=== PATIENT | male | born 1960 | race Caucasian/White ===

== ENCOUNTER 2017-02-18 04:08 | Emergency (ER) | payer SELFPAY ==
[~2017-02-18] VITALS: Ht 177.8 cm; Wt 95.8 kg
[2017-02-18] MEDS ORDERED: OMEP20TA62 PO (04:47)
[2017-02-18] MEDS ORDERED: MAALOX/HYOSCYAMINE/LIDOCAINE 45 ML BTL PO ONE (05:00)
[2017-02-18 05:21] LABS: HEMATOCRIT 46.9 % (39.2-51.8); HEMOGLOBIN 16.1 g/dL (13.7-18.0); WHITE BLOOD COUNT 12.5 x10^3/uL (3.4-10)
[2017-02-18 05:23] LABS: ASPARTATE AMINO TRANSFERASE 13 U/L (15-37); BLOOD UREA NITROGEN 17 mg/dL (7-18)
[2017-02-18] MEDS ORDERED: MAALOX/HYOSCYAMINE/LIDOCAINE 45 ML BTL ONE (05:25)
[2017-02-18 05:30] LABS: IS PT STATUS REG ER OR PRE ER? YES
[2017-02-18 06:59] VITALS: BP 132/84
== END 2017-02-18 07:01 | disposition home or self-care (01) ==
LOC: ED 05:52
DX: R10.13 Epigastric pain (principal); R11.0 Nausea; K21.9 Gastro-esophageal reflux disease without esophagitis; Z88.8 Allergy status to other drugs, medicaments and biological substances
CPT/HCPCS: 36415; 74022; 80053; 83690; 84484; 85025; 86677; 93005; 99285

== ENCOUNTER 2018-06-16 21:25 | Observation (INO) | payer BC ==
[~2018-06-16] VITALS: Ht 185.4 cm; Wt 105.0 kg
[~2018-06-16 21:25] MED LIST: OMEP20TA62 PO
[2018-06-16] MEDS ORDERED: FAMOTIDINE 20 MG/2 ML ONE (21:41)
[2018-06-16] MEDS ORDERED: DIPHENHYDRAMINE 50 MG/ML, 1ML ONE (21:41)
[2018-06-16] MEDS ORDERED: EPINEPHRINE 1 MG/ML, 1ML ONE (21:41)
[2018-06-16] MEDS ORDERED: methylPREDNISolone SOD SUCC 125 MG/2 ML ONE (21:41)
[2018-06-16 21:56] LABS: BASOPHILS # (AUTO) 0.08 x10^3/uL (0-0.1); BASOPHILS % (AUTO) 1 % (0-1); EOSINOPHILS # (AUTO) 0.51 x10^3/uL (0-0.4); EOSINOPHILS % (AUTO) 5 % (1-7); LYMPHOCYTES # (AUTO) 2.84 x10^3/uL (1-3.4); LYMPHOCYTES % (AUTO) 29 % (22-44); MD NO; MEAN CORPUSCULAR HEMOGLOBIN 33.1 pg (27.5-34.5); MEAN CORPUSCULAR HGB CONC 34.1 g/dL (33.2-36.2); MEAN PLATELET VOLUME 7.9 fL (7.4-10.4); MONOCYTES # (AUTO) 1.11 x10^3/uL (0.2-0.8); MONOCYTES % (AUTO) 11 % (2-9); NEUTROPHILS % (AUTO) 53 % (42-75); PLATELET COUNT 300 x10^3/uL (130-400); RED BLOOD COUNT 4.69 x10^6/uL (4.38-5.82); RED CELL DISTRIBUTION WIDTH 12.9 % (9.4-14.8)
--- NOTE | 2018-06-16 21:56 | NUR ---
PT PRESENTING TO ER FOR SWELLING OF THROAT AND TONGUE AFTER EATING PIZZA AROUND 16-1700 TONIGHT. VERY MUFFLED SPEECH AND REPORTING PAIN TO THROAT AND RIGHT SIDE JAW. MD TO BEDSIDE FOR ASSESSMENT. CONNECTED TO ALL MONITORINGM, VSS AT THIS TIME. IV PLACED, LABS DRAWN, MEDS GIVEN. AT BEDSIDE. WILL CONTINUE TO MONITOR
[2018-06-16] MEDS ORDERED: SODIUM CHLORIDE FLUSH 10ML SYR IVF ONE (22:00)
[2018-06-16] MEDS ORDERED: methylPREDNISolone SOD SUCC 125 MG/2 ML IVPush ONE (22:00)
[2018-06-16] MEDS ORDERED: DIPHENHYDRAMINE 25 MG CAPSULE PO ONE (22:00)
[2018-06-16] MEDS ORDERED: EPINEPHRINE 1 MG/ML, 1ML SQ ONE (22:00)
[2018-06-16 22:03] LABS: ALBUMIN 3.2 g/dL (3.4-5.0); ANION GAP 5 mmol/L (5-15); CALCIUM 8.3 mg/dL (8.5-10.1); CHLORIDE 114 mmol/L (98-107); CREATININE 0.94 mg/dL (0.7-1.3)
[2018-06-16] MEDS ORDERED: FAMOTIDINE 20 MG/2 ML IVPush ONE (22:30)
--- NOTE | 2018-06-16 22:44 | NUR ---
REPORT GIVEN TO MADELAINE DE GUZMAN
--- NOTE | 2018-06-16 22:50 | NUR ---
REPORT FROM GEGE JUARES. PT TRANSFERRED TO T3 BY ANTHONY. PT REPORTS TONGUE SWELLING SINCE EATING PIZZA AT APPROX 1600 THIS EVENING. PREVIOUS ALLERGIC REACTIONS TO FOODS. AIRWAY PATENT; MUFFLED VOICE. PT MANAGING OWN SECRETIONS. PT DENIES IMPROVEMENT IN S/S WITH MEDICATIONS ADMINISTERED. SPO2 >90% ON RA. RR WNL. PT PWD, CALM. SO AT BEDSIDE. BP/SPO2/ECG MONITORING IN PLACE, NSR ON MONITOR. SECOND PIV PLACED. AWAITING CCU ADMIT
[2018-06-16] MEDS ORDERED: MORPHINE SULFATE 4 MG/ML, 1ML ONE (22:57)
[2018-06-16] MEDS: methylPREDNISolone SOD SUCC 125 MG/2 ML IVPush SCH (23:00)
[2018-06-16] MEDS ORDERED: DIPHENHYDRAMINE 50 MG/ML, 1ML IVPush PRN (23:00)
[2018-06-16] MEDS ORDERED: hydrALAzine 20 MG/ML, 1ML IVPush PRN (23:00)
[2018-06-16] MEDS: FAMOTIDINE 20 MG/2 ML IVPush SCH (23:00)
[2018-06-16] MEDS: SODIUM CHLORIDE 0.9% 1,000 ML IV SCH (23:00)
[2018-06-16] MEDS ORDERED: MORPHINE SULFATE 4 MG/ML, 1ML IVPush PRN (23:00)
[2018-06-16] MEDS ORDERED: ONDANSETRON 2MG/ML, 2ML IVPush PRN (23:00)
--- NOTE | 2018-06-16 23:05 | NUR ---
PT MEDICATED PER EMAR FOR 11/12 PAIN. SANDY AT BEDSIDE FOR INITIAL ASSESSMENT
--- NOTE | 2018-06-16 23:38 | NUR ---
PT CONTINUES TO DENY WORSENING SYMPTOMS. RESPIRATIONS EVEN/UNLABORED. SPO2 >90% ON RA. SO AT BEDSIDE. PT NOW A CCU HOLD IN ED. HOSPITAL BED REQUESTED
--- NOTE | 2018-06-16 23:58 | NUR ---
PT RESTING IN GURNEY W/ EYES CLOSED. EVEN/REGULAR RESPIRATIONS, RR 14. SPO2 >90% ON RA. SO REMAINS AT BEDSIDE.
--- NOTE | 2018-06-17 01:18 | NUR ---
PT STOOD STEADILY AT BEDSIDE FOR BED CHANGE TO [facility]. DENIES DIZZINESS/WORSENING SWELLING. AIRWAY PATENT. SPEECH REAMINS MUFFLED. BP/SPO2/ECG MONITORING IN PLACE. NSR ON MONITOR
--- NOTE | 2018-06-17 01:40 | NUR ---
SPO2 TO 88% WHILE SLEEPING. PT EASILY ARROUSABLE TO VOICE. SPO2 >90% WHEN AWAKE. PT PLACED ON 2L BY MA FOR SUPPORT.
--- NOTE | 2018-06-17 02:15 | NUR ---
REPORT TO GEGE MALONE
--- NOTE | 2018-06-17 02:21 | NUR ---
RECEIVED REPORT FROM MADELAINE DE GUZMAN. PT RESTING IN BED, AT BEDSIDE. PT IN HOSPITAL BED. PT ON ALL MONITORS. PT A&OX4. PT SPEECH SOUNDS CLEAR, PER , PT SPEECH HAS IMPROVED SINCE HE WAS BROUGHT IN. PT GIVEN URINAL. WILL CONTINUE TO MONITOR.
--- NOTE | 2018-06-17 03:29 | NUR ---
pt resting in bed with eyes closed. no needs at this time. pt able to use urinal to void. pt remains at bedside.
--- NOTE | 2018-06-17 04:10 | NUR ---
pt resting calmly in bed. no stated needs at this time. at bedside. see charted vitals.
[2018-06-17] MEDS ORDERED: methylPREDNISolone SOD SUCC 125 MG/2 ML ONE (05:15)
--- NOTE | 2018-06-17 05:18 | NUR ---
PT CONTINUES TO REST IN BED. PT REPORTS FEELING BETTER AT THIS TIME. RESP EVEN AND NON LABORED. AT BEDSIDE.
[2018-06-17] MEDS: methylPREDNISolone SOD SUCC 125 MG/2 ML IVPush SCH ×3 (05:23→16:36)
--- NOTE | 2018-06-17 06:29 | NUR ---
PT MEDICATED WITH ORDERED MEDS. PT RESTING IN BED DOZING OFF AND ON. ANSWERED PTs' QUESTIONS ABOUT CURRENT PLAN OF CARE. WILL CONTINUE TO MONITOR.
--- NOTE | 2018-06-17 06:55 | NUR ---
REPORT TO HANNAH DE GUZMAN.
[2018-06-17] MEDS: SODIUM CHLORIDE 0.9% 1,000 ML IV SCH (08:33)
[2018-06-17 08:39] VITALS: BP 140/86
[2018-06-17] MEDS: FAMOTIDINE 20 MG/2 ML IVPush SCH (08:42)
[2018-06-17 13:27] VITALS: BP 136/82
[2018-06-17] MEDS ORDERED: OMEP-110 PO (16:41)
== END 2018-06-17 17:06 | disposition home or self-care (01) ==
LOC: SUATTDRO 22:44 → ED 22:49 → EDIP 22:54 → ED 06-17 00:25 → 3NW 06-17 08:06 → DCLOUNGE 06-17 16:55
PROVIDERS: ADMIT Hospitalist; ATTEND Hospitalist
DX: T78.3XXA Angioneurotic edema, initial encounter (principal); K21.9 Gastro-esophageal reflux disease without esophagitis
CPT/HCPCS: 36415; 80048; 82040; 85025; 93005; 96372; 96374; 96375; 96376; 99291; G0378; J0171; J2930; J3490; J7030; Q0163

== ENCOUNTER 2019-12-20 11:30 | Emergency (ER) | payer BC ==
[~2019-12-20] VITALS: Ht 182.9 cm; Wt 95.0 kg
[~2019-12-20 11:30] MED LIST changes: +OMEP-110 PO
[2019-12-20] MEDS ORDERED: ASPIRIN 81 MG TABLET CHEW PO ONE (12:00)
[2019-12-20] MEDS ORDERED: SODIUM CHLORIDE FLUSH 10ML SYR IVF ONE (12:00)
[2019-12-20 12:16] VITALS: BP 158/92
[2019-12-20 12:28] LABS: BASOPHILS # (AUTO) 0.13 x10^3/uL (0-0.1); BASOPHILS % (AUTO) 1 % (0-1); EOSINOPHILS % (AUTO) 3 % (1-7); LYMPHOCYTES # (AUTO) 2.58 x10^3/uL (1-3.4); LYMPHOCYTES % (AUTO) 18 % (22-44); MD NO; MEAN CORPUSCULAR HGB CONC 34.1 g/dL (33.2-36.2); MEAN CORPUSCULAR VOLUME 93.9 fL (81-97); MEAN PLATELET VOLUME 8.1 fL (7.4-10.4); MONOCYTES # (AUTO) 1.18 x10^3/uL (0.2-0.8); MONOCYTES % (AUTO) 8 % (2-9); NEUTROPHILS % (AUTO) 70 % (42-75); PLATELET COUNT 292 x10^3/uL (130-400); RED CELL DISTRIBUTION WIDTH 13.3 % (9.4-14.8)
[2019-12-20 12:39] LABS: ALANINE AMINOTRANSFERASE 31 U/L (12-78); ALBUMIN 3.6 g/dL (3.4-5.0); ANION GAP 8 mmol/L (5-15); CALCIUM 8.9 mg/dL (8.5-10.1); CHLORIDE 103 mmol/L (98-107); CREATININE 1.07 mg/dL (0.7-1.3)
[2019-12-20 12:44] LABS: ALKALINE PHOSPHATASE 92 U/L (45-117); BILIRUBIN,TOTAL 0.4 mg/dL (0.2-1.0); TOTAL PROTEIN 7.3 g/dL (6.4-8.2); TROPONIN I < 0.015 ng/mL (0.000-0.045)
[2019-12-20] MEDS ORDERED: CEFTRIAXONE PMX 1GM/50ML 50 ML IV ONE (14:00)
[2019-12-20] MEDS ORDERED: CEFTRIAXONE 1,000 MG IM ONE (14:00)
[2019-12-20] MEDS ORDERED: CEFTRIAXONE PMX 1GM/50ML 50 ML ONE (14:04)
== END 2019-12-20 14:46 | disposition home or self-care (01) ==
LOC: ED 12:03
DX: J18.9 Pneumonia, unspecified organism (principal); I49.3 Ventricular premature depolarization; R07.9 Chest pain, unspecified; R42 Dizziness and giddiness; K21.9 Gastro-esophageal reflux disease without esophagitis; F17.200 Nicotine dependence, unspecified, uncomplicated; Z88.5 Allergy status to narcotic agent
CPT/HCPCS: 36415; 71045; 80053; 83880; 84484; 85025; 93005; 96372; 99285; J0696; 87635

== ENCOUNTER 2019-12-24 07:57 | Emergency (ER) | payer BC ==
[~2019-12-24] VITALS: Ht 182.9 cm; Wt 94.4 kg
[2019-12-24 08:07] VITALS: BP 164/107
--- NOTE | 2019-12-24 08:23 | NUR ---
BREAK RN: PT AMBULATORY TO ROOM 28 W/ NO COMPLAINTS EXCEPT HE WAS SEEN HERE 12/20/2019 AND WAS TESTED FOR COVID. SPECIMEN LEAKED IN TRANSIT AND PT HERE FOR RETEST. STATES NO COVID SX SINCE YESTERDAY. PT RESTING ON [facility]. [place].
--- NOTE | 2019-12-24 08:57 | NUR ---
Patient/Caregiver given discharge instructions and they have confirmed that they understand the instructions. Patient ambulatory with steady gait.
== END 2019-12-24 08:58 | disposition home or self-care (01) ==
LOC: ED 08:47
DX: R05 Cough (principal); Z20.828 Contact with and (suspected) exposure to other viral communicable diseases; K21.9 Gastro-esophageal reflux disease without esophagitis
CPT/HCPCS: 36415; 87635; 99283